=== PATIENT | male | born 1980 | race Caucasian/White ===

== ENCOUNTER 2021-06-07 00:16 | Inpatient (IN) | payer OTHER ==
[2021-06-07] MEDS ORDERED: ACETAMINOPHEN 1000 MG/100 ML VIAL (NON FORMULARY) IVPB ONE (01:58)
[2021-06-07] MEDS ORDERED: ONDANSETRON 4 MG/2 ML VIAL IVPUSH ONE (01:58)
[2021-06-07] MEDS ORDERED: SODIUM CHLORIDE 0.9% 500 ML INFUS.BAG IV ONE (01:58)
[2021-06-07] MEDS ORDERED: FAMOTIDINE 20 MG/50 ML IVPB 20 MG/50 ML MG IVPB ONE ×2 (01:58→02:32)
[2021-06-07] MEDS ORDERED: ACETAMINOPHEN INJECTION 100 ML IVPB ONE (02:32)
[2021-06-07] MEDS ORDERED: ONDANSETRON 4 MG/2 ML VIAL ONE (02:32)
[2021-06-07 02:57] LABS: BASO % 1.3 % (0-2.0); EOS % 0.1 % (0-4.5); HEMATOCRIT 48.2 % (35.4-49); HEMOGLOBIN 17.2 GM/dL (11.7-16.9); LYMPH % 30.3 % (8-40); MCH 35.1 pg (25.7-33.7); MCHC 35.7 g/dl (32.0-35.9); MEAN CELL VOLUME 98.5 fl (80-96); MONO % 6.4 % (3.8-10.2); NEUT % 61.9 % (42.8-82.8); PLATELET COUNT 285 10^3/uL (134-434); RDW 14.9 % (11.9-15.9); WHITE BLOOD COUNT 4.1 K/mm3 (4.0-10.0)
[2021-06-07 03:19] LABS: CHLORIDE 108 mmol/L (98-107); SODIUM 145 mmol/L (136-145)
[2021-06-07 03:21] LABS: ALBUMIN 3.7 g/dl (3.4-5.0); CALCIUM 7.9 mg/dL (8.5-10.1)
[2021-06-07 03:22] LABS: ANION GAP 9 MMOL/L (8-16); BLOOD UREA NITROGEN 10.2 mg/dL (7-18); CO2 28 mmol/L (21-32); GLUCOSE,RANDOM 108 mg/dL (74-106); LIPASE 437 U/L (73-393); MAGNESIUM 1.9 mg/dL (1.8-2.4)
[2021-06-07 03:24] LABS: SGPT/ALT 51 U/L (13-61)
[2021-06-07 03:25] LABS: CREATININE 1.1 mg/dL (0.55-1.3); SGOT/AST 69 U/L (15-37)
[2021-06-07 03:26] LABS: BILIRUBIN,TOTAL 0.6 mg/dL (0.2-1); TOT PROT 6.9 g/dl (6.4-8.2)
[2021-06-07 03:27] LABS: ALK PHOS 103 U/L (45-117)
[2021-06-07] MEDS ORDERED: chlordiazePOXIDE HCL 25 MG CAPSULE PO ONE (06:33)
[2021-06-07] MEDS ORDERED: chlordiazePOXIDE HCL 10 MG CAPSULE ONE ×2 (06:34→11:52)
[2021-06-07] MEDS ORDERED: ONDANSETRON *ODT* 4 MG TABLET SL ONE (06:37)
[2021-06-07] MEDS ORDERED: ONDANSETRON *ODT* 4 MG TABLET ONE (06:37)
[2021-06-07] MEDS ORDERED: CHLORDIAZEPOXIDE 20 MG, CHLORDIAZEPOXIDE 5 MG PO PRN (08:50)
[2021-06-07] MEDS ORDERED: chlordiazePOXIDE HCL 25 MG CAPSULE PO PRN (08:50)
[2021-06-07] MEDS ORDERED: POTASSIUM CHLORIDE TABS 20 MEQ TABLET.ER (FP) PO ONE ×2 (09:28→09:39)
[2021-06-07] MEDS ORDERED: PANTOPRAZOLE SODIUM 40 MG/100 ML BAG IVPB ONE (09:39)
[2021-06-07] MEDS ORDERED: MULTIVITAMINS (DAILY MVI) TABLET (FP) ONE (09:39)
[2021-06-07] MEDS: MULTIVITAMINS (DAILY MVI) TABLET (FP) PO SCH (09:51)
[2021-06-07] MEDS: PANTOPRAZOLE SODIUM 40 MG VIAL IVPUSH SCH ×2 (09:51→22:49)
[2021-06-07] MEDS ORDERED: ENOXAPARIN NA (PORCINE) 40 MG/0.4 ML DISP.SYRIN SQ SCH (10:00)
[2021-06-07] MEDS ORDERED: FOLIC ACID INJECTION - 1 MG, THIAMINE HCL 100 MG, MULTIVIT INJECTION ADULT 10 ML in SOD... IVPB ONE (10:00)
[2021-06-07 10:07] LABS: EPI CELLS 3 /uL (0-25.1); HYALINE CASTS 0 /uL (0-3.1); URINE APPEARANCE CLEAR; URINE BACTERIA 2 /uL (0-1359); URINE BILIRUBIN NEGATIVE (NEGATIVE); URINE COLOR YELLOW; URINE GLUCOSE (UA) NEGATIVE (NEGATIVE); URINE KETONE NEGATIVE (NEGATIVE); URINE LEUK ESTERASE NEGATIVE (NEGATIVE); URINE NITRITE NEGATIVE (NEGATIVE); URINE PROTEIN 1+ (NEGATIVE); URINE RBC 11 /uL (0-23.9); URINE UROBILINOGEN 0.2 mg/dL (0.2-1.0); URINE WBC 3 /uL (0-25.8)
[2021-06-07 10:33] LABS: URINE AMPHETAMINES NEGATIVE (NEGATIVE); URINE BARBITURATES NEGATIVE (NEGATIVE)
[2021-06-07 10:34] LABS: COCAINE, UR NEGATIVE (NEGATIVE); METHADONE, UR NEGATIVE (NEGATIVE); OPIATES, URI NEGATIVE (NEGATIVE); PHENCYCLIDINE,URINE NEGATIVE (NEGATIVE)
[2021-06-07 10:46] LABS: URINE BENZODIAZEPINES POSITIVE (NEGATIVE)
[2021-06-07] MEDS: chlordiazePOXIDE HCL 10 MG CAPSULE PO SCH ×3 (11:53→22:51)
[2021-06-07 12:11] LABS: BASO % 1.4 % (0-2.0); EOS % 0.3 % (0-4.5); HEMOGLOBIN 15.5 GM/dL (11.7-16.9); LYMPH % 35.4 % (8-40); MCH 35.8 pg (25.7-33.7); MCHC 36.2 g/dl (32.0-35.9); MEAN CELL VOLUME 98.9 fl (80-96); MEAN PLT VOLUME 6.8 fl (7.5-11.1); MONO % 6.4 % (3.8-10.2); NEUT % 56.5 % (42.8-82.8); PLATELET COUNT 235 10^3/uL (134-434); RBC 4.34 M/mm3 (4.00-5.60); RDW 15.1 % (11.9-15.9); WHITE BLOOD COUNT 4.3 K/mm3 (4.0-10.0)
[2021-06-07 12:17] LABS: INR 1.21 (0.83-1.09); PROTHROMBIN TIME (PATIENT) 14.8 SEC (9.7-13.0)
[2021-06-07 12:55] LABS: ALBUMIN 3.2 g/dl (3.4-5.0); BLOOD UREA NITROGEN 10.2 mg/dL (7-18); CALCIUM 7.1 mg/dL (8.5-10.1)
[2021-06-07 12:59] LABS: BILIRUBIN,TOTAL 0.9 mg/dL (0.2-1); TOT PROT 5.9 g/dl (6.4-8.2)
[2021-06-07 13:19] VITALS: BMI 32.5
[2021-06-07 13:31] LABS: PHOSPHOROUS 3.6 mg/dL (2.5-4.9)
[2021-06-07] MEDS: NICOTINE 14 MG/24 HOURS TOPICAL PATCH TD SCH (17:57)
[2021-06-07] MEDS ORDERED: chlordiazePOXIDE 5 MG CAPSULE ONE (20:56)
[2021-06-08] MEDS ORDERED: PT OWN MED DRAWER 7, Y5N ONE (06:02)
[2021-06-08] MEDS: chlordiazePOXIDE HCL 10 MG CAPSULE PO SCH ×5 (06:51→18:57)
[2021-06-08] MEDS ORDERED: chlordiazePOXIDE 5 MG CAPSULE ONE (08:03)
[2021-06-08 09:30] LABS: BASO % 0.7 % (0-2.0); EOS % 0.5 % (0-4.5); HEMATOCRIT 47.2 % (35.4-49); HEMOGLOBIN 16.9 GM/dL (11.7-16.9); LYMPH % 24.9 % (8-40); MCH 35.8 pg (25.7-33.7); MCHC 35.7 g/dl (32.0-35.9); MEAN CELL VOLUME 100.2 fl (80-96); MEAN PLT VOLUME 7.7 fl (7.5-11.1); MONO % 4.5 % (3.8-10.2); NEUT % 69.4 % (42.8-82.8); PLATELET COUNT 246 10^3/uL (134-434); RBC 4.71 M/mm3 (4.00-5.60); RDW 14.8 % (11.9-15.9); WHITE BLOOD COUNT 8.2 K/mm3 (4.0-10.0)
[2021-06-08 09:55] LABS: BLOOD UREA NITROGEN 10.4 mg/dL (7-18); MAGNESIUM 1.6 mg/dL (1.8-2.4)
[2021-06-08 09:58] LABS: CREATININE 1.2 mg/dL (0.55-1.3); PHOSPHOROUS 3.5 mg/dL (2.5-4.9)
[2021-06-08 09:59] LABS: BILIRUBIN,TOTAL 2.8 mg/dL (0.2-1)
[2021-06-08 10:07] LABS: CALCIUM 8.2 mg/dL (8.5-10.1)
[2021-06-08] MEDS: PANTOPRAZOLE SODIUM 40 MG VIAL IVPUSH SCH (10:09)
[2021-06-08] MEDS: MULTIVITAMINS (DAILY MVI) TABLET (FP) PO SCH (10:10)
[2021-06-08] MEDS: NICOTINE 14 MG/24 HOURS TOPICAL PATCH TD SCH (10:10)
[2021-06-08] MEDS: THIAMINE HCL 100 MG TABLET (FP) PO SCH (10:10)
[2021-06-08] MEDS: FOLIC ACID 1 MG TABLET (FP) PO SCH (10:10)
[2021-06-08] MEDS ORDERED: MIDAZOLAM HCL 2 MG/2 ML SINGLE DOSE VIAL ONE (13:03)
[2021-06-08] MEDS ORDERED: CEFAZOLIN 1 GM/D5W 1 GM/50 ML BAG ONE (13:15)
[2021-06-08] MEDS ORDERED: MAG HYDROX/AL HYDROX/SIMETH 30 ML UNIT-DOSE CUP PO PRN (13:37)
[2021-06-08] MEDS ORDERED: POTASSIUM CHLORIDE TABS 20 MEQ TABLET.ER (FP) PO ONE (15:16)
[2021-06-08] MEDS ORDERED: MAGNESIUM OXIDE 400 MG TABLET (FP) PO ONE (15:16)
[2021-06-08] MEDS ORDERED: PANTOPRAZOLE 40 MG TABLET PO SCH (22:00)
[2021-06-08] MEDS: PANTOPRAZOLE 40 MG TABLET PO SCH (22:58)
[2021-06-08] MEDS ORDERED: chlordiazePOXIDE HCL 25 MG CAPSULE PO SCH (23:00)
[2021-06-09] MEDS ORDERED: chlordiazePOXIDE HCL 25 MG CAPSULE PO SCH (05:00)
[2021-06-09] MEDS ORDERED: chlordiazePOXIDE 5 MG CAPSULE ONE ×2 (05:59→10:54)
[2021-06-09] MEDS ORDERED: chlordiazePOXIDE HCL 10 MG CAPSULE ONE ×2 (06:00→10:55)
[2021-06-09] MEDS: CHLORDIAZEPOXIDE 20 MG, CHLORDIAZEPOXIDE 5 MG PO SCH ×3 (06:16→17:28)
[2021-06-09] MEDS: PANTOPRAZOLE 40 MG TABLET PO SCH ×2 (09:15→21:25)
[2021-06-09] MEDS: NICOTINE 14 MG/24 HOURS TOPICAL PATCH TD SCH (09:15)
[2021-06-09] MEDS: FOLIC ACID 1 MG TABLET (FP) PO SCH (09:15)
[2021-06-09] MEDS: THIAMINE HCL 100 MG TABLET (FP) PO SCH (09:15)
[2021-06-09] MEDS: MULTIVITAMINS (DAILY MVI) TABLET (FP) PO SCH (09:15)
[2021-06-09 10:02] LABS: BASO % 0.9 % (0-2.0); EOS % 1.7 % (0-4.5); HEMATOCRIT 40.4 % (35.4-49); HEMOGLOBIN 14.6 GM/dL (11.7-16.9); LYMPH % 17.2 % (8-40); MCH 35.9 pg (25.7-33.7); MCHC 36.1 g/dl (32.0-35.9); MEAN CELL VOLUME 99.6 fl (80-96); MEAN PLT VOLUME 7.9 fl (7.5-11.1); MONO % 6.5 % (3.8-10.2); NEUT % 73.7 % (42.8-82.8); PLATELET COUNT 172 10^3/uL (134-434); RBC 4.05 M/mm3 (4.00-5.60); RDW 15.4 % (11.9-15.9); WHITE BLOOD COUNT 4.8 K/mm3 (4.0-10.0)
[2021-06-09 10:23] LABS: CALCIUM 7.9 mg/dL (8.5-10.1); INR 0.97 (0.83-1.09)
[2021-06-09 10:24] LABS: BLOOD UREA NITROGEN 7.6 mg/dL (7-18); MAGNESIUM 1.6 mg/dL (1.8-2.4)
[2021-06-09 10:26] LABS: CREATININE 1.2 mg/dL (0.55-1.3)
[2021-06-09 10:28] LABS: TOT PROT 5.8 g/dl (6.4-8.2)
[2021-06-09 10:32] LABS: ALBUMIN 3.1 g/dl (3.4-5.0); BILIRUBIN,TOTAL 0.8 mg/dL (0.2-1)
[2021-06-09] MEDS ORDERED: POTASSIUM CHLORIDE TABS 20 MEQ TABLET.ER (FP) PO ONE (11:31)
[2021-06-09] MEDS ORDERED: MAGNESIUM OXIDE 400 MG TABLET (FP) PO ONE (11:31)
[2021-06-09] MEDS: chlordiazePOXIDE HCL 25 MG CAPSULE PO SCH ×2 (17:24→22:18)
[2021-06-09 18:07] LABS: HEP B CORE AB, TOT Negative (Negative)
[2021-06-10] MEDS ORDERED: chlordiazePOXIDE HCL 10 MG CAPSULE PO PRN
[2021-06-10] MEDS: chlordiazePOXIDE HCL 10 MG CAPSULE PO SCH ×4 (05:55→22:07)
[2021-06-10 08:13] LABS: EOS % 2.2 % (0-4.5); HEMATOCRIT 40.2 % (35.4-49); HEMOGLOBIN 14.2 GM/dL (11.7-16.9); LYMPH % 24.7 % (8-40); MCH 35.9 pg (25.7-33.7); MCHC 35.4 g/dl (32.0-35.9); MEAN CELL VOLUME 101.5 fl (80-96); NEUT % 65.1 % (42.8-82.8); PLATELET COUNT 162 10^3/uL (134-434); RBC 3.96 M/mm3 (4.00-5.60); RDW 14.7 % (11.9-15.9); WHITE BLOOD COUNT 4.9 K/mm3 (4.0-10.0)
[2021-06-10 08:23] LABS: BLOOD UREA NITROGEN 6.6 mg/dL (7-18); CALCIUM 7.7 mg/dL (8.5-10.1); MAGNESIUM 1.6 mg/dL (1.8-2.4)
[2021-06-10 08:28] LABS: BILIRUBIN,TOTAL 0.4 mg/dL (0.2-1); TOT PROT 5.8 g/dl (6.4-8.2)
[2021-06-10] MEDS: PANTOPRAZOLE 40 MG TABLET PO SCH ×2 (08:59→22:07)
[2021-06-10] MEDS: FOLIC ACID 1 MG TABLET (FP) PO SCH (08:59)
[2021-06-10] MEDS: THIAMINE HCL 100 MG TABLET (FP) PO SCH (08:59)
[2021-06-10] MEDS: NICOTINE 14 MG/24 HOURS TOPICAL PATCH TD SCH (08:59)
[2021-06-10] MEDS: MULTIVITAMINS (DAILY MVI) TABLET (FP) PO SCH (08:59)
[2021-06-10] MEDS ORDERED: chlordiazePOXIDE 5 MG CAPSULE ONE ×3 (10:34→22:02)
[2021-06-10] MEDS ORDERED: MAGNESIUM OXIDE 400 MG TABLET (FP) PO ONE (12:48)
[2021-06-11] MEDS ORDERED: chlordiazePOXIDE HCL 10 MG CAPSULE PO SCH (05:00)
[2021-06-11] MEDS ORDERED: chlordiazePOXIDE 5 MG CAPSULE ONE ×2 (06:28→13:17)
[2021-06-11 09:37] VITALS: BP 133/86; PULSE 87; TEMP 97.8
[2021-06-11] MEDS: MULTIVITAMINS (DAILY MVI) TABLET (FP) PO SCH (10:15)
[2021-06-11] MEDS: PANTOPRAZOLE 40 MG TABLET PO SCH (10:15)
[2021-06-11] MEDS: FOLIC ACID 1 MG TABLET (FP) PO SCH (10:15)
[2021-06-11] MEDS: THIAMINE HCL 100 MG TABLET (FP) PO SCH (10:15)
[2021-06-11] MEDS: NICOTINE 14 MG/24 HOURS TOPICAL PATCH TD SCH (10:17)
[2021-06-11 10:29] LABS: BASO % 0.9 % (0-2.0); EOS % 2.1 % (0-4.5); HEMOGLOBIN 13.9 GM/dL (11.7-16.9); LYMPH % 18.5 % (8-40); MCH 36.1 pg (25.7-33.7); MCHC 35.5 g/dl (32.0-35.9); MEAN CELL VOLUME 101.5 fl (80-96); MEAN PLT VOLUME 8.1 fl (7.5-11.1); MONO % 7.4 % (3.8-10.2); NEUT % 71.1 % (42.8-82.8); PLATELET COUNT 166 10^3/uL (134-434); RBC 3.84 M/mm3 (4.00-5.60); RDW 15.1 % (11.9-15.9); WHITE BLOOD COUNT 5.4 K/mm3 (4.0-10.0)
[2021-06-11 10:51] LABS: ALBUMIN 2.9 g/dl (3.4-5.0); BLOOD UREA NITROGEN 7.9 mg/dL (7-18); CALCIUM 8.1 mg/dL (8.5-10.1); MAGNESIUM 1.8 mg/dL (1.8-2.4)
[2021-06-11 10:55] LABS: BILIRUBIN,TOTAL 0.5 mg/dL (0.2-1); CREATININE 0.9 mg/dL (0.55-1.3); TOT PROT 5.8 g/dl (6.4-8.2)
[2021-06-11] MEDS ORDERED: chlordiazePOXIDE HCL 10 MG CAPSULE PO ONE (12:45)
[2021-06-12] MEDS ORDERED: chlordiazePOXIDE HCL 10 MG CAPSULE PO ONE (05:00)
== END 2021-06-11 14:47 | disposition home or self-care (01) | DRG 253 ==
LOC: JER 00:16 → JERBED 05:33 → J6S 12:16
PROVIDERS: ADMIT Internal Medicine; ATTEND Nurse Practitioner Family
PROC: 0DB68ZX Excision of Stomach, Via Natural or Artificial Opening Endoscopic, Diagnostic (ICD-10-PCS; principal; 2021-06-08 13:45)
DX: K92.0 Hematemesis (principal); F41.9 Anxiety disorder, unspecified; F12.10 Cannabis abuse, uncomplicated; F43.10 Post-traumatic stress disorder, unspecified; F20.9 Schizophrenia, unspecified; F31.9 Bipolar disorder, unspecified; I10 Essential (primary) hypertension; E04.1 Nontoxic single thyroid nodule; E87.6 Hypokalemia; K76.0 Fatty (change of) liver, not elsewhere classified; K40.90 Unilateral inguinal hernia, without obstruction or gangrene, not specified as recurrent; K76.9 Liver disease, unspecified; R74.01 Elevation of levels of liver transaminase levels; F10.220 Alcohol dependence with intoxication, uncomplicated; F10.230 Alcohol dependence with withdrawal, uncomplicated; Y90.8 Blood alcohol level of 240 mg/100 ml or more; K21.00 Gastro-esophageal reflux disease with esophagitis, without bleeding; K29.60 Other gastritis without bleeding
CPT/HCPCS: 36415; 70450-TC; 71260-TC; 74177-TC; 80053; 80307; 81003; 82272; 82550; 82553; 83690; 83735; 84100; 84484; 85025; 85610; 86704; 86706; 86707; 86708; 86709; 86803; 86850; 86900; 86901; 87340; 88305-TC; 93005; 93010; 99285-25; C9803; J0131; Q0162; U0003; U0005

== ENCOUNTER 2021-08-05 17:24 | Emergency (ER) | payer OTHER ==
[2021-08-05 17:34] VITALS: TEMP 98.4; BMI 23.6
[2021-08-05] MEDS ORDERED: ONDANSETRON 4 MG/2 ML VIAL IVPUSH ONE (18:33)
[2021-08-05] MEDS ORDERED: LACTATED RINGERS SOLUTION 1000 ML INFUS.BAG IV ONE (18:33)
[2021-08-05] MEDS ORDERED: FAMOTIDINE 20 MG/50 ML IVPB 20 MG/50 ML MG IVPB ONE ×2 (18:35→19:28)
[2021-08-05] MEDS ORDERED: ONDANSETRON 4 MG/2 ML VIAL ONE (19:27)
[2021-08-05 19:41] LABS: BASO % 1.4 % (0-2.0); HEMATOCRIT 41.7 % (35.4-49); HEMOGLOBIN 14.7 GM/dL (11.7-16.9); LYMPH % 36.5 % (8-40); MCH 34.8 pg (25.7-33.7); MCHC 35.3 g/dl (32.0-35.9); MEAN CELL VOLUME 98.7 fl (80-96); MEAN PLT VOLUME 7.3 fl (7.5-11.1); MONO % 5.2 % (3.8-10.2); NEUT % 55.9 % (42.8-82.8); PLATELET COUNT 229 10^3/uL (134-434); RBC 4.22 M/mm3 (4.00-5.60); RDW 14.2 % (11.9-15.9); WHITE BLOOD COUNT 5.1 K/mm3 (4.0-10.0)
[2021-08-05 19:53] LABS: CALCIUM 8.1 mg/dL (8.5-10.1)
[2021-08-05 19:54] LABS: ALBUMIN 3.4 g/dl (3.4-5.0)
[2021-08-05 19:57] LABS: CREATININE 1.1 mg/dL (0.55-1.3)
[2021-08-05 19:59] LABS: BILIRUBIN,TOTAL 0.3 mg/dL (0.2-1); TOT PROT 6.6 g/dl (6.4-8.2)
[2021-08-05 20:02] LABS: BLOOD UREA NITROGEN 9.6 mg/dL (7-18)
[2021-08-05] MEDS ORDERED: morphine SULFATE 4 MG/ML VIAL IVPUSH ONE (20:15)
[2021-08-05 20:27] VITALS: BP 154/102; PULSE 92
[2021-08-05] MEDS ORDERED: morphine SULFATE 4 MG/ML VIAL ONE ×2 (20:33→22:12)
[2021-08-05] MEDS ORDERED: morphine CARPU-JECT 2 MG/1 ML DISP.SYRIN IVPUSH ONE (21:53)
[2021-08-05 22:19] LABS: PH,URINE 8.5 (5.0-8.0); URINE APPEARANCE CLEAR; URINE BILIRUBIN NEGATIVE (NEGATIVE); URINE COLOR YELLOW; URINE GLUCOSE (UA) NEGATIVE (NEGATIVE); URINE KETONE NEGATIVE (NEGATIVE); URINE LEUK ESTERASE NEGATIVE (NEGATIVE); URINE NITRITE NEGATIVE (NEGATIVE); URINE PROTEIN TRACE (NEGATIVE)
[2021-08-05] MEDS ORDERED: MAG HYDROX/AL HYDROX/SIMETH 30 ML UNIT-DOSE CUP PO ONE (23:56)
[2021-08-06] MEDS ORDERED: MAG HYDROX/AL HYDROX/SIMETH 30 ML UNIT-DOSE CUP ONE (00:06)
== END 2021-08-06 00:30 | disposition home or self-care (01) ==
LOC: JER 17:24
PROC: 3E033GC Introduction of Other Therapeutic Substance into Peripheral Vein, Percutaneous Approach (ICD-10-PCS; principal; 2021-08-05)
DX: K29.20 Alcoholic gastritis without bleeding (principal); B96.81 Helicobacter pylori [H. pylori] as the cause of diseases classified elsewhere; F10.99 Alcohol use, unspecified with unspecified alcohol-induced disorder
CPT/HCPCS: 36415; 71045-TC-FY; 74177-TC; 76705-TC; 80053; 81003; 83605; 83690; 85025; 93005; 93010; 99285-25; Q9967

== ENCOUNTER 2021-12-19 21:48 | Inpatient (IN) | payer OTHER ==
[2021-12-19] MEDS ORDERED: ACETAMINOPHEN 1000 MG/100 ML BAG IVPB ONE (22:02)
[2021-12-19] MEDS ORDERED: SODIUM CHLORIDE 0.9% 500 ML INFUS.BAG IV ONE (22:02)
[2021-12-19] MEDS ORDERED: ONDANSETRON 4 MG/2 ML VIAL IVPUSH ONE (22:03)
[2021-12-19] MEDS ORDERED: morphine CARPU-JECT 4 MG/1 ML DISP.SYRIN IVPUSH ONE (22:04)
[2021-12-19] MEDS ORDERED: FAMOTIDINE 20 MG/50 ML IVPB 20 MG/50 ML MG IVPB ONE ×2 (22:04→22:10)
[2021-12-19] MEDS ORDERED: morphine SULFATE 4 MG/ML VIAL ONE (22:10)
[2021-12-19] MEDS ORDERED: ONDANSETRON 4 MG/2 ML VIAL ONE (22:10)
[2021-12-19] MEDS ORDERED: ACETAMINOPHEN INJECTION 100 ML IVPB ONE (22:10)
[2021-12-19 22:12] VITALS: BMI 31.3
[2021-12-19] MEDS ORDERED: LORazepam 2 MG/ML SDV VIAL IVPUSH ONE (22:26)
[2021-12-19 22:32] LABS: BASO % 1.2 % (0-2.0); EOS % 0.2 % (0-4.5); HEMATOCRIT 50.1 % (35.4-49); HEMOGLOBIN 17.6 GM/dL (11.7-16.9); LYMPH % 44.1 % (8-40); MCH 35.3 pg (25.7-33.7); MCHC 35.2 g/dl (32.0-35.9); MEAN CELL VOLUME 100.2 fl (80-96); MEAN PLT VOLUME 6.8 fl (7.5-11.1); MONO % 6.3 % (3.8-10.2); NEUT % 48.2 % (42.8-82.8); PLATELET COUNT 175 10^3/uL (134-434); RDW 16.2 % (11.9-15.9); WHITE BLOOD COUNT 4.9 K/mm3 (4.0-10.0)
[2021-12-19 22:54] LABS: ALBUMIN 3.9 g/dl (3.4-5.0); BLOOD UREA NITROGEN 4.7 mg/dL (7-18); MAGNESIUM 1.9 mg/dL (1.8-2.4)
[2021-12-19 22:56] LABS: PHOSPHOROUS 1.7 mg/dL (2.5-4.9)
[2021-12-19 22:57] LABS: CREATININE 1.2 mg/dL (0.55-1.3)
[2021-12-19 22:58] LABS: BILIRUBIN,TOTAL 0.6 mg/dL (0.2-1); TOT PROT 7.5 g/dl (6.4-8.2)
[2021-12-20] MEDS ORDERED: SODIUM CHLORIDE 0.9% 500 ML INFUS.BAG IV ONE (00:06)
[2021-12-20] MEDS ORDERED: METOCLOPRAMIDE HCL INJECTION 10 MG/2 ML VIAL IVPB ONE (01:00)
[2021-12-20] MEDS ORDERED: METOCLOPRAMIDE HCL INJECTION 10 MG/2 ML VIAL ONE (01:45)
[2021-12-20] MEDS ORDERED: LORazepam 2 MG/ML SDV VIAL IVPUSH ONE (01:45)
[2021-12-20] MEDS ORDERED: POTASSIUM PHOSPHATE 30 MM in SODIUM CHLORIDE 500 ML IVPB ONE (04:20)
[2021-12-20] MEDS ORDERED: POTASSIUM CHLORIDE ORAL LIQUID 20 MEQ/15 ML PO ONE (04:22)
[2021-12-20] MEDS ORDERED: MAGNESIUM 2GM/50ML STERILE WATER IVPB IVPB ONE (04:30)
[2021-12-20] MEDS ORDERED: TRIMETHOBENZAMIDE HCL 200MG/2ML INJ IM PRN (05:01)
[2021-12-20] MEDS ORDERED: FOLIC ACID INJECTION - 1 MG, THIAMINE HCL 100 MG, MULTIVIT INJECTION ADULT 10 ML in SOD... IVPB ONE (05:03)
[2021-12-20] MEDS ORDERED: LORazepam 2 MG/ML SDV VIAL IVPUSH PRN (05:04)
[2021-12-20] MEDS ORDERED: LACTATED RINGERS SOLUTION 1,000 ML IV SCH ×2 (05:15→21:00)
[2021-12-20] MEDS ORDERED: MAGNESIUM SULFATE IN WATER 2 GM/50 ML IVPB IVPB ONE (05:21)
[2021-12-20] MEDS ORDERED: POTASSIUM CHLORIDE ORAL LIQUID 20 MEQ/15 ML ONE (05:21)
[2021-12-20 08:22] LABS: BASO % 0.5 % (0-2.0); EOS % 0.1 % (0-4.5); HEMATOCRIT 47.1 % (35.4-49); HEMOGLOBIN 15.8 GM/dL (11.7-16.9); LYMPH % 23.2 % (8-40); MCH 34.7 pg (25.7-33.7); MCHC 33.6 g/dl (32.0-35.9); MEAN CELL VOLUME 103.3 fl (80-96); MEAN PLT VOLUME 7.5 fl (7.5-11.1); MONO % 7.3 % (3.8-10.2); NEUT % 68.9 % (42.8-82.8); PLATELET COUNT 155 10^3/uL (134-434); RBC 4.56 M/mm3 (4.00-5.60); RDW 16.5 % (11.9-15.9); WHITE BLOOD COUNT 4.2 K/mm3 (4.0-10.0)
[2021-12-20] MEDS ORDERED: LABETALOL HCL 5 MG/1 ML (100MG/20 ML VIAL) IVPUSH ONE (08:42)
[2021-12-20 08:48] LABS: BLOOD UREA NITROGEN 4.2 mg/dL (7-18); CALCIUM 8.1 mg/dL (8.5-10.1)
[2021-12-20 08:49] LABS: ALBUMIN 3.8 g/dl (3.4-5.0); MAGNESIUM 2.2 mg/dL (1.8-2.4)
[2021-12-20 08:52] LABS: PHOSPHOROUS 4.3 mg/dL (2.5-4.9)
[2021-12-20 08:53] LABS: BILIRUBIN,TOTAL 0.8 mg/dL (0.2-1); TOT PROT 6.6 g/dl (6.4-8.2)
[2021-12-20] MEDS ORDERED: PANTOPRAZOLE SODIUM 40 MG VIAL ONE (08:55)
[2021-12-20] MEDS ORDERED: LORazepam 1 MG TABLET PO ONE (08:55)
[2021-12-20 08:56] LABS: INR 1.04 (0.83-1.09)
[2021-12-20] MEDS ORDERED: LORazepam 1 MG TABLET ONE (09:05)
[2021-12-20] MEDS: PANTOPRAZOLE SODIUM 40 MG VIAL IVPUSH SCH ×2 (09:37→21:54)
[2021-12-20] MEDS ORDERED: D5-LR+20 MEQ KCL - 20 MEQ/1,000 ML INFUS.BAG IV SCH (10:30)
[2021-12-20] MEDS ORDERED: THIAMINE HCL 200 MG/2 ML VIAL IVPB SCH (10:30)
[2021-12-20] MEDS: FOLIC ACID INJECTION - 1 MG, THIAMINE HCL 100 MG, MULTIVIT INJECTION ADULT 10 ML in SOD... IVPB ONE ×2 (11:27→11:46)
[2021-12-20] MEDS: KCL 10 MEQ IVPB 10 MEQ/100 ML INFUS.BAG IVPB SCH ×3 (11:27→13:23)
[2021-12-20] MEDS: NICOTINE 7 MG/24 HOURS TOPICAL PATCH TD SCH (16:38)
[2021-12-20] MEDS ORDERED: amLODIPine BESYLATE 2.5 MG TABLET (FP) PO ONE (18:44)
[2021-12-20] MEDS: LORazepam 2 MG/ML SDV VIAL IVPUSH PRN (20:48)
[2021-12-20 21:17] VITALS: BP 140/97
[2021-12-20] MEDS: D5-LR+20 MEQ KCL - 20 MEQ/1,000 ML INFUS.BAG IV SCH (21:54)
[2021-12-21] MEDS: LORazepam 2 MG/ML SDV VIAL IVPUSH PRN (06:14)
[2021-12-21] MEDS: D5-LR+20 MEQ KCL - 20 MEQ/1,000 ML INFUS.BAG IV SCH (06:14)
[2021-12-21 06:50] VITALS: PULSE 105; TEMP 99.1
[2021-12-21 09:49] LABS: HEMATOCRIT 42.8 % (35.4-49); HEMOGLOBIN 14.5 GM/dL (11.7-16.9); MCH 34.8 pg (25.7-33.7); MEAN CELL VOLUME 102.3 fl (80-96); MEAN PLT VOLUME 7.9 fl (7.5-11.1); PLATELET COUNT 119 10^3/uL (134-434); RBC 4.18 M/mm3 (4.00-5.60); RDW 15.7 % (11.9-15.9); WHITE BLOOD COUNT 3.6 K/mm3 (4.0-10.0)
[2021-12-21] MEDS ORDERED: amLODIPine BESYLATE 2.5 MG TABLET (FP) PO SCH (10:00)
[2021-12-21] MEDS ORDERED: THIAMINE HCL 100 MG TABLET (FP) PO SCH (10:00)
[2021-12-21 10:02] LABS: CALCIUM 7.9 mg/dL (8.5-10.1)
[2021-12-21 10:03] LABS: ALBUMIN 3.4 g/dl (3.4-5.0); BLOOD UREA NITROGEN 3.7 mg/dL (7-18)
[2021-12-21 10:06] LABS: CREATININE 0.9 mg/dL (0.55-1.3); PHOSPHOROUS 2.2 mg/dL (2.5-4.9)
[2021-12-21 10:08] LABS: BILIRUBIN,TOTAL 1.4 mg/dL (0.2-1)
[2021-12-21] MEDS: NICOTINE 7 MG/24 HOURS TOPICAL PATCH TD SCH (10:32)
[2021-12-21] MEDS: PANTOPRAZOLE SODIUM 40 MG VIAL IVPUSH SCH (10:32)
== END 2021-12-21 11:30 | disposition left against medical advice (07) | DRG 137 ==
LOC: SUATTDRO 21:48 → JER 21:48 → JERBED 12-20 00:31 → J8W 12-20 10:13
PROVIDERS: ADMIT Internal Medicine; ATTEND Internal Medicine
DX: U07.1 COVID-19 (principal); I16.0 Hypertensive urgency; R74.01 Elevation of levels of liver transaminase levels; E66.9 Obesity, unspecified; Z68.31 Body mass index [BMI] 31.0-31.9, adult; F10.29 Alcohol dependence with unspecified alcohol-induced disorder; R10.9 Unspecified abdominal pain; R11.2 Nausea with vomiting, unspecified; F17.210 Nicotine dependence, cigarettes, uncomplicated
CPT/HCPCS: 36415; 70450-TC; 71045-TC-FY; 71260-TC; 74177-TC; 80053; 80307; 82607; 82746; 82962; 83605; 83690; 83735; 84100; 84484; 85025; 85027; 85610; 85730; 86850; 86900; 86901; 93005; 93010; 99291; C9803; Q9967; U0003; U0005